=== PATIENT | female | born 1980 | race Two or more races ===

== ENCOUNTER 2017-08-10 14:40 | Emergency (ER) | payer OTHER ==
[~2017-08-10] VITALS: Ht 154.9 cm; Wt 82.4 kg
[2017-08-10 14:55] VITALS: BP 123/75
== END 2017-08-10 15:59 | disposition home or self-care (01) ==
LOC: ED 15:49
DX: B34.9 Viral infection, unspecified (principal); M94.0 Chondrocostal junction syndrome [Tietze]
CPT/HCPCS: 71020; 93005; 99284

== ENCOUNTER 2018-10-25 19:19 | Emergency (ER) | payer MEDICAID, OTHER ==
[~2018-10-25] VITALS: Ht 162.6 cm; Wt 98.0 kg
[2018-10-25 19:29] VITALS: BP 135/83
[2018-10-25] MEDS ORDERED: IBUP200C8 PO (19:45)
[2018-10-25] MEDS ORDERED: MECLIZINE CHEWABLE 25 MG TAB ONE (20:07)
[2018-10-25] MEDS ORDERED: MECLIZINE CHEWABLE 25 MG TAB PO ONE (20:30)
== END 2018-10-25 21:01 | disposition home or self-care (01) ==
LOC: ED 20:25
DX: R42 Dizziness and giddiness (principal)
CPT/HCPCS: 99283

== ENCOUNTER 2019-05-08 20:19 | Emergency (ER) | payer MEDICAID ==
[~2019-05-08] VITALS: Ht 160 cm; Wt 93.2 kg
[~2019-05-08 20:19] MED LIST: IBUP200C8 PO
[2019-05-08 20:31] VITALS: BP 104/61
--- NOTE | 2019-05-08 20:37 | NUR ---
FIRST CONTACT WITH PT. PT C/O LOWER BACK PAIN, ABD/PELVIC PAIN SINCE FRIDAY. REPORTING URINARY FREQUENCY. PT'S AOX4. RESPS EVEN AND UNLABORED. BP/SPO2 MONITORS IN PLACE. CALL LIGHT WITHIN REACH.
--- NOTE | 2019-05-08 20:41 | NUR ---
PT AMB TO BR AND BACK TO ROOM WITH STEADY GAIT. UA SENT.
[2019-05-08 20:55] LABS: BASOPHILS # (AUTO) 0.02 x10^3/uL (0-0.1); BASOPHILS % (AUTO) 0 % (0-1); EOSINOPHILS # (AUTO) 0.18 x10^3/uL (0-0.4); EOSINOPHILS % (AUTO) 2 % (1-7); LYMPHOCYTES # (AUTO) 3.21 x10^3/uL (1-3.4); LYMPHOCYTES % (AUTO) 42 % (22-44); MD NO; MEAN CORPUSCULAR HEMOGLOBIN 30.9 pg (27.0-34.8); MEAN CORPUSCULAR HGB CONC 33.3 g/dL (32.4-35.8); MEAN CORPUSCULAR VOLUME 92.9 fL (80-100); MEAN PLATELET VOLUME 8.6 fL (7.4-10.4); MONOCYTES # (AUTO) 0.81 x10^3/uL (0.2-0.8); MONOCYTES % (AUTO) 11 % (2-9); NEUTROPHILS # (AUTO) 3.45 x10^3/uL (1.8-6.8); NEUTROPHILS % (AUTO) 45 % (42-75); PLATELET COUNT 285 x10^3/uL (130-400); RED BLOOD COUNT 4.13 x10^6/uL (3.82-5.3); RED CELL DISTRIBUTION WIDTH 13.3 % (9.6-15.2)
[2019-05-08 21:03] LABS: MICROSCOPIC NOT IND
[2019-05-08 21:04] LABS: ALANINE AMINOTRANSFERASE 31 U/L (12-78); ALBUMIN 3.6 g/dL (3.4-5.0); ANION GAP 7 mmol/L (5-15); CALCIUM 8.8 mg/dL (8.5-10.1); CHLORIDE 109 mmol/L (98-107); CREATININE 0.83 mg/dL (0.55-1.02)
[2019-05-08 21:06] LABS: CULTURE INDICATED? NO
[2019-05-08 21:09] LABS: ALKALINE PHOSPHATASE 54 U/L (45-117); BILIRUBIN,TOTAL 0.2 mg/dL (0.2-1.0); TOTAL PROTEIN 7.1 g/dL (6.4-8.2)
--- NOTE | 2019-05-08 21:37 | NUR ---
PT GIVEN DC INSTRUCTIONS AND SCRIPTS. PT EDUCATED REGARDING DC MEDICATIONS. PT'S AOX4. RESPS EVEN AND UNLABORED. PT AMB TO DC WITH STEADY GAIT. NO ACUTE DISTRESS AT DC.
== END 2019-05-08 21:39 | disposition home or self-care (01) ==
LOC: ED 21:32
DX: S39.012A Strain of muscle, fascia and tendon of lower back, initial encounter (principal); X58.XXXA Exposure to other specified factors, initial encounter; Y93.89 Activity, other specified; Y92.89 Other specified places as the place of occurrence of the external cause; Y99.8 Other external cause status
CPT/HCPCS: 36415; 80053; 81003; 84703; 85025; 99283